=== PATIENT | female | born 1960 | race Caucasian/White ===

== ENCOUNTER 2018-10-27 19:55 | Emergency (ER) | payer BC ==
[~2018-10-27] VITALS: Ht 167.6 cm; Wt 104.3 kg
[2018-10-27 20:13] VITALS: BP 141/47
== END 2018-10-27 21:12 | disposition left against medical advice (07) ==
LOC: ER 19:57
DX: R50.9 Fever, unspecified (principal); Z53.21 Procedure and treatment not carried out due to patient leaving prior to being seen by health care provider
CPT/HCPCS: 82962